=== PATIENT | female | born 1990 | race Caucasian/White ===

== ENCOUNTER 2016-11-14 17:12 | Emergency (ER) | payer SELFPAY ==
[~2016-11-14] VITALS: Ht 157.5 cm; Wt 52.2 kg
--- NOTE | 2016-11-14 18:05 | Emergency Room Report ---
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 Clinical Suspician of Infection? Mental Status: Sepsis Risk: Have you (or family members/close friends) recently traveled outside the [place]? If Yes, where/when: Have you had exposure to infectious disease within the past month? TB? Other? Specify: Source patient, RN notes reviewed Exam Limitations no limitations Comment pt comes to the ED with an abscess on the right forearm for the past 4 days and gives history of IV drug use for a long time. She also smokes 1 ppd and has had a heart murmur in the past. She is afebrile but has a 5 cm abscess on right forearh and indeed does have a heart murmur but does not appear to be tachycardic. I discussed this with Dr. Lin as I do not want to I and D this abscess and not have any followup for her. Dr. Lin recommends admittng to the service doctor, start IV vancomycin, get ECHO in the AM and he will take her to surgery tomorrow to I&D if her ECHO is clear. Cardiac Chest Pain Chest pain indicative of cardiac No ALLERGIES Coded Allergies: No Known Allergies (04/14/16) Home Medications Reported Medications No Known Home Medications History Medical History General CAD? No Angina: No MS: No Hypertension? No Hyperlipidemia? No CHF? No DVT? No PE? No COPD? No Asthma? No Anemia? No GERD? No Gastric ulcers? No GI Bleed? No Hernia? No Thyroid Problems? No Hypothyroidism? No CVA? No Seizures? No Diabetes? No Insulin Dependent: No Insulin Pump: No Home FSBS? No Renal Insuffiency? No End Stage Renal Disease? No UTI? No Stones? No BPH? No GB Disease: No Nephritic Syndrome? No Asplenia? No Hepatitis? No Sickle Cell Disease? No Arthritis? No Migraines? No Cataracts? No Glaucoma? No MRSA? No HIV? No TB? No Anxiety? No Depression? No Cancer? No More? Yes Additional hx: HX HEART MURMUR Immunization Hx DT/Tetanus 10/01/2011 Flu Refused Pneumonia Refuses Surgical Hx Previous Surgery?Y TONSILS AND ADENOIDS Social History Smoking Hx Packs/day < 1 Pack Alcohol Alcohol: Yes Review of Systems All Other Systems Reviewed and Negative Constitutional see HPI Cardiovascular see HPI Skin see HPI Physical Exam Vital Signs Vital Signs Date Time Temp Pulse Resp B/P Pulse O2 O2 Flow FiO2 Ox Delivery Rate 11/14 1720 98.7 98 18 118/58 100 General Appearance no apparent distress Respiratory Status No: respiratory distress. Lung Sounds bilateral: normal breath sounds. Cardiovascular normal exam, regular rate/rhythm, systolic murmur (at left 2nd ICs) Extremities swelling, 5 CM ABSCESS RIGHT FOREARM Neurologic alert, data entry II-XII nml as tested, normal exam, no motor/sensory deficits, oriented x 3 Medical Decision Making LABS/Meds/Orders Pt receiving controlled substance in ED? No Results/Orders Current Medication Orders Sig/Jyoti Start time Last Medication Dose Route Stop Time Status Admin Miscellaneous 1 EACH CONSULT PHARMACY 11/14 1800 AC Information * 11/15 0558 Sodium Chloride 10 ML PRN PRN 11/14 1800 AC IV 11/15 1757 Sodium Chloride 1,000 ML .Q1H1M 11/14 1800 AC IV 11/14 1900 Sodium Chloride 10 ML PRN PRN 11/14 1800 AC IV 11/15 1757 Sodium Chloride 999 ML .Q6H40M 11/14 1800 AC IV Sodium Chloride 10 ML PRN PRN 11/14 1800 AC IV 11/15 1757 Orders Procedure Date/time Status IV SALINE LOCK 11/14 175 Active URINALYSIS/COMPLETE 11/14 175 Active PARTIAL THROMBOPLASTIN TIME 11/14 175 Active DRUG ABUSE SCREEN (10) 11/14 1758 Active CULTURE, BLOOD 11/14 1745 Active CULTURE, BLOOD 11/14 174 Active PROTHROMBIN TIME 11/14 174 Active CBC WITH AUTO DIFF 11/14 174 Active CHEM 12 PROFILE 11/14 174 Active Departure Departure Time of Disposition 1826 Disposition Against Medical Advice Clinical Impression Primary Impression: Abscess of right forearm Secondary Impressions: IV drug user Condition STABLE Referrals Riley DAVIS,Evens Additional Instructions I spoke with the pt and told her that I had spoken with Dr. Lin and he wanted her to be admitted, get cultures, get ECHO in the morning and if ECHO clear, he would take her to surgery to open and drain the abscess. She initially agreed and the nurses started to try to get labs and IV started and pt, after 3 sticks, left the ER AMA and said she was not staying. I have told her if she has Bacterial Endocarditis this could be a life threatening problem. She reiterated she is not staying and left Discharge Counseling Counseled pt/family regarding diagnosis, test results, medications/RX, home care, follow up needs Prescriptions Current Visit Scripts No Known Home Medications ED Critical Care Critical Care No If Critical Care minutes are documented, the time involved in the performance of seperately reportable procedures was not counted toward critical care time documented. I directly delivered medical care to this critically ill and/or injured patient. Timely evaluation and treatment was necessary to address the significant organ system(s) dysfunction present in this patient. at 1836
[2016-11-14 18:52] VITALS: BP 118/58
--- OUTSIDE RECORDS SUMMARY | 2016-11-23 08:52 | External Medical Summary Rpt | CCD ---
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 Name Role Phone GARCÍA BRO, GARCÍA Unavailable Unavailable BRO GARCÍA BRO, GARCÍA Unavailable Unavailable [facility] Unavailable Unavailable [facility]ATOR[facility], [facility] Unavailable Unavailable SERVICE, [facility] Unavailable Unavailable SERVICE, [facility] DELUCA TATIANNA, DELUCA Unavailable Unavailable TATIANNA DELUCA TATIANNA, DELUCA Unavailable Unavailable [facility] Unavailable [facility]available [facility] DARRON SHANE, Unavailable Unavailable DARRON SHANE AICHA SANDRA, AICHA Unavailable Unavailable SANDRA CHILEL MAT, CHILEL Unavailable Unavailable MAT ONEILL TARYN, ONEILL TARYN Unavailable Unavailable [facility] [place]available [place] [place] [facility] [place] NANCY SANDRA, NANCY Unavailable Unavailable SANDRA NANCY SANDRA, NANCY Unavailable Unavailable SANDRA OSCAR MARIO MD, Unavailable Unavailable OSCAR MARIO MD HARPEL SHAY, HARPEL Unavailable Unavailable SHAY HARPEL SHAY, HARPEL Unavailable Unavailable SHAY [facility] Unavailable Unavailable INC, [facility] Unavailable Unavailable [facility], [facility] Unavailable Unavailable [facility] P, [facility] P JOSIAH JOE, Unavailable Unavailable JOSIAH JOE [facility] Bri Redmond MD, Unavailable Unavailable Bri Redmond MD [facility] Unavailable Unavailable SERVICES, [facility] ELENA YU, Unavailable Unavailable ELENA YU RICHARD, Unavailable Unavailable COLBY BELLA ANG, SCIFRES Unavailable Unavailable ANG SCIRERE ANG, SCIFRES Unavailable Unavailable MADHU IRWIN, Unavailable Unavailable MADHU [facility] Unavailable Unavailable DEPT [facility] DEPT [facility] Unavailable Unavailable DEPT [facility] DEPT [facility] WEHRMAN III CIRO, Unavailable Unavailable WEHRMAN III CIRO WEHRMAN III CIRO, Unavailable Unavailable WEHRMAN III Katalina DIAZ, ZAIN, Unavailable Unavailable Katalina C Purpose Continuity of Care Document - 04-19-2007 through 2016 Problems Code Diagnosis DOS Provider Status 9190 ABRASION/FR 07-31-2014 [facility] SITE W/O INF 8830 OPEN WOUND 02-07-2014 [facility] P MENTION COMPLICATIO N E8493 PLACE OF 02-07-2014 [facility] P PLACES&VANESSA ISES E9208 ACC CAUSED 02-07-2014 [facility]UM/OBJ S 650 NORMAL 11-04-2013 [facility] [place] 50104 11-03-2013 HARPEL SHAY DISTRESS AFFECT MANAGEMENT MOTH DELIVERED 10288 THIRD-DEGRE 11-03-2013 HARPEL SHAY E PERINEAL LACERATION WITH DELIVERY V270 OUTCOME OF 11-03-2013 HARPEL SHAY DELIVERY SINGLE LIVEBORN V221 SUPERVISION 10-31-2013 HARPEL SHAY OF OTHER NORMAL 50905 ASTHMA, 10-14-2013 NANCY SANDRA UNSPECIFIED , UNSPECIFIED STATUS 57345 OTHER 10-14-2013 NANCY SANDRA SPECIFED COMPLICATIO N ANTEPARTUM 85131 UNSPEC 09-25-2013 OSCAR MARIO MD /MALPRESENT ATION FETUS ANTPRTM V286 SCREENING 09-25-2013 [facility] [place] [address] THREATENED 08-29-2013 DELUCA TATIANNA PREMATURE LABOR ANTEPARTUM 04158 NAUSEA WITH 07-30-2013 GARCÍA BRO VOMITING V771 SCREENING 07-16-2013 [facility] FOR [facility] DIABETES INC MELLITUS 74103 OT CURRENT 06-23-2013 NANCY SANDRA MAT CONDS CLASSIFIABL E ELSW ANTPRTM 8472 LUMBAR 06-23-2013 NANCY SANDRA SPRAIN AND STRAIN E9288 OTHER 06-23-2013 NANCY SANDRA ACCIDENT 74136 OTHER 06-03-2013 OSCAR MARIO MD DISEASES DUE TO CHLAMYDIAE 67398 UNSPEC 05-31-2013 VERÓNICA III HEMORRHAGE CIRO EARLY ANTEPARTUM 70784 BREECH 05-31-2013 [facility] W/O IM[facility] ASS MENTION VERSION ANTPRTM 03228 ABDOMINAL 05-31-2013 WEHRMAN III PAIN, LEFT CIRO LOWER QUADRANT 90667 REGULAR 05-29-2013 SCIFRES ANG ASTIGMATISM 7804 DIZZINESS 04-18-2013 [facility] GIDDINESS SERVICES 7810 ABNORMAL 04-18-2013 [facility] INVOLUNTARY AMBULANCE MOVEMENTS SERVICE 7962 ELEVATED BP 04-18-2013 [facility] READING AMBULANCE WITHOUT DX SERVICE HYPERTENSIO N V222 04-18-2013 [facility] INCIDENTAL SERVICES V220 SUPERVISION 04-07-2013 OSCAR Villarreal OF NORMAL FABIANO DAVIS FIRST V7231 ROUTINE 04-07-2013 OSCAR Villarreal GYNECOLOGIC FABIANO DAVIS AL EXAMINATION V2689 OTHER 04-02-2013 [facility] SPECIFIED [facility] DEPT MANAGEMENT REX V7242 04-02-2013 [facility] EXAMINATION DISTRICT OR TEST [facility] DEPT POSITIVE REX RESULT 625.9 625.9 FEM 03-18-2013 [facility] NOS V72.42 V72.42 03-18-2013 [facility] OR TEST, POSITIVE RESULT 26843 UNSPECIFIED 05-03-2008 [facility] VIRAL [facility] INFECTION INC IN CCE & UNS SITE 2859 UNSPECIFIED 05-03-2008 [facility] ANEMIA [facility] 7862 COUGH 05-03-2008 [facility] 4659 ACUTE URIS 04-14-2008 A Meena MONZON [facility] UNSPECIFIED SITE 486 PNEUMONIA, 04-14-2008 A Meena [place] ORGANISM [facility] UNSPECIFIED 3671 MYOPIA 02-21-2008 SAIL[facility] VISION 4660 ACUTE 06-28-2007 A Meena [place] BRONCHITIS [facility] 5290 GLOSSITIS 06-17-2007 A Meena [place] MD [facility] 84583 MIGRAINE 05-22-2007 A Meena [place] W/O AURA [facility] W/O INTRACT W/O STAT MIGRNOSUS 462 ACUTE 04-29-2007 A Meena [place] PHARYNGITIS [facility] Allergies, Adverse Reactions, Alerts Type Allergy to substance Adverse Reaction to Substance Substance Reaction Severity NO KNOWN ALLERGIES Unknown Unknown Medications Na ND Rx Da Fi Fi Am Da Di Ph RX Ph St me C No te ll ll ou ys ag ar # ys at rm s nt no ma ic us Or Da si cy ia de te s n re d SO 00 02 0 No DI 40 -0 UM 97 4- Lo 98 20 ng CH 30 14 er LO 9 RI Ac DE ti ve 0. 9% SO RICHARD TI ON 66 11 12 00 12 6 EA 10 MO Ac 99 -1 -[address] 32 SE ti 20 8- 4- 00 SI 24 S ve 22 [address] 00 08 08 EP 4 PH HE AR N MA A CY OF CY NT HI AN A ME 00 11 12 00 21 6 EA 10 MO Ac TH 78 -1 -[address] 32 SE ti YL 15 8- 4- 00 SI 23 S ve NM [address] ED 20 08 08 EP NI 7 PH HE SO AR N LO MA A NE CY 4 OF MG CY NT DO HI SE AN PK A 58 05 05 00 24 12 EA 98 No Ac 17 -1 -[address] 01 t ti 70 6- 2- 00 SI 16 Av ve 92 20 20 0 DE ai 30 08 08 la 7 PH bl AR e MA CY OF CY NT HI AN A AZ 00 05 05 00 6. 6 EA 98 No Ac IT 09 -1 -[address] 01 t ti HR 37 6- 2- 0 SI 14 Av ve OM 14 20 20 DE ai YC 61 08 08 la IN 8 PH bl AR e 25 MA 0 CY MG OF TA CY BL NT ET HI AN A BU 00 04 04 00 30 3 EA 97 No Ac TA 59 -0 -[address] 53 t ti LB 13 9- 4- 00 SI 91 Av ve -A 36 20 20 DE ai CE 90 08 08 la TA 5 PH bl UT AR e N- MA CA CY FF OF 50 CY -3 NT 25 HI -4 AN 0 A Vital Signs 03-18-2013 23:29 Name Value Interpretat Reference Comment ion Range BP 61 mm[Hg] Diastolic BP Systolic 119 mm[Hg] Heart 99 /min Rate/Pulse O2% 100 % Respiratory 20 /min Rate 03-18-2013 21:52 Name Value Interpretat Reference Comment ion Range BP 78 mm[Hg] Diastolic BP Systolic 136 mm[Hg] Results Labs Lab Lab Date Result Refere Interp Status Commen Order Detail nces retati t Range on B-HCG SerPl EIA 3rd [facility] (03-18-2013 21:20) B-HCG 47359.1 complet SerPl 014 mIU/ML ed EIA 3rd 21:20 [facility] COMPREHENSIVE METABOLIC PANEL (03-18-2013 21:16) Glucose 02-04-2 129 74-106 complet 014 mg/dL ed Bld-mCn 21:16 c BUN 04-2 8 mg/dL 7-18 complet Bld-mCn 014 ed c 21:16 Creat 0204-2 0.8 0.6-1.0 complet SerPl-m 014 mg/dL ed Cnc 21:16 Creat 03-18- 91 50-200 complet Cl 014 ML/MIN ed predict 21:16 ed SerPl C-G-vRa te GFR/BSA 03-18- 90 59- complet .pred 014 ML/MIN ed SerPl 21:16 Schwart z-vRate Sodium 03-18- 135 136-145 complet SerPl-s 014 mmoL/L ed Cnc 21:16 Potassi 3.4 3.5-5.1 complet um 014 mmoL/L ed SerPl-s 21:16 Cnc Chlorid 98 98-107 complet e 014 mmoL/L ed SerPl-s 21:16 Cnc CO2 2 27 21.0-32 complet SerPl-s 014 mmoL/L .0 ed Cnc 21:16 Calcium -04-2 9.2 8.5-10. complet 014 mg/dL 1 ed SerPl-m 21:16 Cnc Prot 04-2 8.3 6.4-8.2 complet SerPl-m 014 gm/dL ed Cnc 21:16 Albumin -04-2 4.4 3.4-5.0 complet 014 gm/dL ed SerPl-m 21:16 Cnc Globuli 03-18-2 3.9 1.3-3.2 complet n 014 gm/dL ed Ser-mCn 21:16 c Albumin 04-2 1.1 UNK 1.1-1.8 complet /Glob 014 ed SerPl-m 21:16 Rto Bilirub 03-18-2 0.3 0.2-1.0 complet 014 mg/dL ed SerPl-m 21:16 Cnc AST 03-18-2 13 U/L 15-37 complet SerPl-c 014 ed Cnc 21:16 ALT 03-18-2 21 U/L 12-78 complet SerPl-c 014 ed Cnc 21:16 ALP 04-2 100 U/L 50-136 complet SerPl-c 014 ed Cnc 21:16 CBC with AUTO DIFF (03-18-2013 21:16) WBC # 02-04-2 13.3 4.8-10. complet Bld 014 K/MM3 8 ed Auto 21:16 RBC # 02-04-2 4.96 4.2-5.4 complet Bld 014 M/mm3 ed Auto 21:16 Hgb 02-04-2 15.6 12.2-16 complet Bld-mCn 014 g/dL .2 ed c 21:16 Hct Fr 02-04-2 45.5 % 37.0-47 complet Bld 014 .0 ed 21:16 MCV RBC 02-04-2 91.8 fl 82.2-97 complet 014 .8 ed 21:16 MCH RBC 02-04-2 31.5 pg 27-31.2 complet Qn 014 ed Auto 21:16 MEAN 02-04-2 34.3 31.8-35 complet CORPUSC 014 g/dl .4 ed ULAR 21:16 HGB CONC RDW RBC 02-04-2 14.7 % 11.5-17 complet Auto 014 .5 ed 21:16 Platele 02-04-2 266 142-424 complet t Bld 014 K/mm3 ed Ql 21:16 Manual MEAN 02-04-2 8.5 fl 7.4-10. complet PLATELE 014 4 ed T 21:16 VOLUME Granulo 02-04-2 69.8 % 37.0-80 complet cytes 014 .0 ed Fr Bld 21:16 Auto LYMPH % 02-04-2 25.0 % 10-50.0 complet 014 ed 21:16 Monocyt 02-04-2 3.0 % 1.7-9.3 complet es Fr 014 ed Bld 21:16 Auto Eosinop 02-04-2 1.9 % 0.1-12. complet hil Fr 014 0 ed Bld 21:16 Auto Basophi 02-04-2 0.4 % 0.1-2.0 complet ls Fr 014 ed Bld 21:16 Auto Granulo 02-04-2 9.3 1.8-7.8 complet cytes # 014 K/mm3 ed Bld 21:16 Auto Lymphoc 02-04-2 3.3 0.7-4.5 complet ytes Fr 014 K/mm3 ed Bld 21:16 Auto Monocyt 02-04-2 0.4 0.1-1.0 complet es # 014 K/mm3 ed Bld 21:16 Auto Eosinop 02-04-2 0.3 0.0-0.4 complet hil # 014 K/mm3 ed Bld 21:16 Auto Basophi -04-2 0.1 0-0.2 complet ls # 014 K/MM3 ed Bld 21:16 Auto B-HCG Ur Ql (03-18-2013 20:50) B-HCG 02-04-2 POSITIV NEG complet Ur Ql 014 E ed 20:50 URINALYSIS/COMPLETE (03-18-2013 20:50) URINE -04-2 YELLOW YELLOW complet COLOR 014 ed 20:50 URINE 02-04-2 CLEAR CLEAR complet APPEARA 014 ed NCE 20:50 URINE 02-04-2 NEGATIV NEG complet GLUCOSE 014 E ed - 20:50 DIPSTIC K URINE 02-04-2 NEGATIV NEG complet BILIRUB 014 E ed IN - 20:50 DIPSTIC K URINE 02-04-2 NEGATIV NEG complet KETONE 014 E mg/dL ed 20:50 URINE 02-04-2 1.010 1.005-1 complet SPECIFI 014 UNK .030 ed C 20:50 GRAVITY URINE 02-04-2 NEGATIV NEG complet BLOOD 014 E ed 20:50 URINE 02-04-2 6.0 UNK 5.0-8.5 complet PH 014 ed 20:50 URINE 02-04-2 NEGATIV NEG complet PROTEIN 014 E mg/dL ed - 20:50 DIPSTIC K URINE 02-04-2 0.2 NEG complet UROBILI 014 E.U./dL ed NOGEN - 20:50 DIPSTIC K URINE 02-04-2 NEGATIV NEG complet NITRATE 014 E ed - 20:50 DIPSTIC K URINE 02-04-2 TRACE NEG complet LEUK 014 ed ESTERAS 20:50 E URINE 02-04-2 3-5 0 complet RBC 014 rbc/hpf ed 20:50 URINE 02-04-2 5-10 O complet WBC 014 wbc/hpf ed 20:50 URINE 02-04-2 10-20 0-5 complet SQUAMOU 014 #/hpf ed S CELLS 20:50 URINE 02-04-2 2+ O complet BACTERI 014 ed A 20:50 Procedures Procedure DOS Code Location Performer Comment NEURAXIAL 00764 [facility] ONEILL TARYN LABOR 4 ANESTH ANALG/ANE OF THE S PLND BLUE VAGINAL DELIVERY VAGINAL 73363 REXKOBI HARPEL DELIVERY 4 SHAY SHAY ONLY W/POSTPAR NAVA CARE CUL 87163 OSCAR MARIO PRSMPTV 4 FABIANO DAY PTHGNC ORGANISM SCRN W/COLONY ESTIMJ PARTICLE 94572 [facility]EN[facility]ICT AGGLUTINA 4 [facility] TION INC INC SCREEN EACH ANTIBODY US PREG 41993 OSCAR MARIO UTERUS 4 FABIANO DAVIS SHAY AFTER 1ST TRIMEST GESTATION 27544 YOSI DELUCA NONSTRESS 4 TATIANNA TATIANNA TEST BLOOD 58164 [facility] COUNT 4 [facility] COMPLETE INC INC AUTO&AUTO DIFRNTL WBC GLUCOSE 94538 [facility] POST 4 [facility] GLUCOSE INC INC DOSE US PREG 34879 OSCAR REYESL UTERUS 4 FABIANO DAVIS SHAY AFTER 1ST TRIMEST GESTATION IADNA 82725 BIO BIO CHLAMYDIA 4 REFERNCE REFERNCE LABORATOR LABORATOR TRACHOMAT IES IES IS AMPLIFIED PROBE TQ CULTURE 84464 OSCAR MARIO CHLAMYDIA 4 FABIANO DAVIS SHAY ANY SOURCE US PREG 71919 [facility] UTERUS 4 MEDICAL SHANE REAL TIME IMAGING F/U ASS TRNSABDL PER FETUS OPHTH 35767 SCIFRES SCIFRES MEDICAL 4 ANG ANG XM&EVAL COMPRE NEW PT 1/> VST US PREG 99238 OSCAR REYESL UTERUS 4 FABIANO DAVIS SHAY REAL TIME W/IMAGE DCMTN TRANSVAG AMB A0427 [facility] SERVICE 4 AMBULANCE AMBULANCE ALS SERVICE SERVICE EMERGENCY TRANSPORT LEVEL 1 GROUND A0425 [facility] MILEAGE 4 AMBULANCE AMBULANCE PER SERVICE SERVICE STATUTE MILE IADNA 44957 BIO BIO TRICHOMON 4 REFERNCE REFERNCE LABORATOR LABORATOR VAGINALIS IES IES AMPLIFIED PROBE TECH IAADIADOO 06010 OSCAR MARIO 4 FABIANO DAVIS SHAY TRICHOMON VAGINALIS IADNA 05154 BIO BIO STEFANO 4 REFERNCE REFERNCE SPECIES LABORATOR LABORATOR AMPLIFIED IES IES PROBE TQ IADNA 52201 BIO BIO GARDNEREL 4 REFERNCE REFERNCE LA LABORATOR LABORATOR VAGINALIS IES IES AMPLIFIED PROBE TQ CYTP C/V 85654 BIO BIO AUTO THIN 4 REFERNCE REFERNCE LYR LABORATOR LABORATOR PREPJ SCR IES IES MNL RESCR PHYS CULTURE 50606 OSCAR Villarreal CHLAMYDIA 4 FABIANO MARIO MD ANY SOURCE IADNA 55585 BIO BIO CHLAMYDIA 4 REFERNCE REFERNCE LABORATOR LABORATOR TRACHOMAT IES IES IS AMPLIFIED PROBE TQ IADNA 81104 OSCAR MARIO HERPES 4 FABIANO DAVIS SHAY SIMPLX VIRUS DIRECT PROBE TQ IADNA 51778 BIO BIO HERPES 4 REFERNCE REFERNCE SOMPLX LABORATOR LABORATOR VIRUS IES IES AMPLIFIED PROBE TQ IADNA 07478 OSCAR MARIO NEISSERIA 4 FABIANO DAVIS SHAY GONORRHOE AE DIRECT PROBE TQ IADNA 20506 BIO BIO NEISSERIA 4 REFERNCE REFERNCE LABORATOR LABORATOR GONORRHOE IES IES AE AMPLIFIED PROBE TQ IADNA NOS 04380 BIO BIO 4 REFERNCE REFERNCE AMPLIFIED LABORATOR LABORATOR PROBE TQ IES IES EACH ORGANISM RADIOLOGI 14381 [facility] Meena YU EXAM 9 MEDICAL ELENA P CHEST 2 IMAGING VIEWS ASSOCIATE FRONTAL&L S ATERAL IAADI 88466 [facility] INFLUENZA 9 [facility] B VIRUS INC INC IAADI 19161 [facility] INFFLUENZ 9 [facility] A A VIRUS INC INC BLOOD 05770 [facility] BENEDICT COUNT 9 [facility] COMPLETE INC INC AUTO&AUTO DIFRNTL WBC IAADIADOO 26284 Katalina RUVALCABA MD INFLUENZA [facility] OPH 73915 NARINDER BARAJAS 9 VISION MADHU M XM&EVAL COMPRHNSV ESTAB PT 1/> FRAMES V2020 SAILAJA SCIFRROLANDA, PURCHASES 9 VISION MADHU M SPHERE V2100 SAILAJA SCIFRES, SINGLE 9 VISION MADHU M VISION PLANO +/- 4.00 PER LENS FITTING 51294 SAILAJA SCIFRES, SPECTACLE 9 VISION MADHU M S XCPT APHAKIA MONOFOCAL SPHERE V2100 TATYANA JOE, SINGLE 8 JOSIAH A JOSIAH A VISION PLANO +/- 4.00 PER LENS RPR&REFIT 21149 TATYANA JOE G 8 JOSIAH A JOSIAH A SPECTACLE S EXCEPT APHAKIA FRAMES V2020 TATYANA JOE, PURCHASES 8 JOSIAH A JOSIAH A FRAMES V2020 TTAYANA JOE, PURCHASES 8 JOSIAH A JOSIAH A RPR&REFIT 28619 TATYANA JOE G 8 JOSIAH A JOSIAH A SPECTACLE S EXCEPT APHAKIA IADNA 56226 Katalina BELLA, STREPTOCO 8 ZAIN DAVIS COLBY [employer] A QUANTIFIC ATION FRAMES V2020 TATYANA JOE, PURCHASES 8 JOSIAH A JOSIAH A SPHERE V2100 TATYANA JOE SINGLE 8 JOSIAH A JOSIAH A VISION PLANO +/- 4.00 PER LENS FITTING 22453 TATYANA JOE, SPECTACLE 8 JOSIAH A JOSIAH A S XCPT APHAKIA MONOFOCAL OPHTH 75387 TATYANA JOE, MEDICAL 8 JOSIAH A JOSIAH A XM&EVAL COMPRHNSV ESTAB PT Encounters Encounter Start End Date Code Location Performer Type Date OFFICE [address] [facility] 5 5 [facility] T VISIT [facility] 15 MINUTES [facility] - 4 4 [facility] EMER[facility]ENCY 30878 [facility] CHILEL 4 4 [facility] T VISIT P LIMITED/M INOR PROB OFFICE 51949 HARPEL HARPEL OUTPATIEN 4 4 [facility]AY SHAY T VISIT 15 MINUTES OFFICE 53237 HARPEL HARPEL OUTPATIEN 4 4 SHAY SHAY T VISIT 15 MINUTES EMERGENCY 98561 NANCY REDMOND 4 4 SANDRA SANDRA DEPARTMEN T VISIT MODERATE SEVERITY OFFICE 28821 OSCAR R HARPEL OUTPATIEN 4 4 FABIANO DAVIS SHAY T VISIT 15 MINUTES HOSPITAL [facility] - 4 4 [facility] OUTPATI[facility] INC T OFFICE 39421 OSCAR R HARPEL OUTPATIEN 4 4 FABIANO DAVIS SHAY T VISIT 15 MINUTES OFFICE 69732 OSCAR R HARPEL OUTPATIEN 4 4 FABIANO DAVIS SHAY T VISIT 15 MINUTES OFFICE 63376 OSCAR R HARPEL OUTPATIEN 4 4 FABIANO DAVIS SHAY T VISIT 15 MINUTES EMERGENCY 22092 [facility] 4 4 [facility] DEPARTMEN T VISIT MODERATE SEVERITY OFFICE 66071 OSCAR Villarreal HARPEL OUTPATIEN 4 4 FABIANO DAVIS SHAY T VISIT 15 MINUTES HOSPITAL [facility] - 4 4 [facility] OUTPATIEN INC T OFFICE 05611 OSCAR Villarreal [facility] OUTPATIEN 4 4 FABIANO DAVIS SHAY T VISIT 15 MINUTES OFFICE 02489 OSCAR Villarreal HARPEL OUTPATIEN 4 4 FABIANO DAVIS SHAY T VISIT 15 MINUTES EMERGENCY 48740 NANCY REDMOND 4 4 SANDRA SANDRA DEPARTMEN T VISIT MODERATE SEVERITY OFFICE 27958 OSCAR Villarreal HARPEL OUTPATIEN 4 4 FABIANO DAY T VISIT 15 MINUTES EMERGENCY 89635 VERÓNICA SANCHES DEPT 4 4 III CIRO III CIRO VISIT HIGH SEVERITY& THREAT FUNCJ OFFICE 84236 OSCAR MARIO OUTPATIEN 4 4 FABIANO DAY T VISIT 15 MINUTES OFFICE 12018 OSCAR MARIO OUTPATIEN 4 4 FABIANO DAY T VISIT 15 MINUTES EMERGENCY 55547 JODY REDMOND 4 4 EMERGENCY SANDRA DEPARTMEN SERVICES T VISIT HIGH/URGE NT SEVERITY INITIAL 09802 OSCAR MARIO PREVENTIV 4 4 FABIANO DAY E MEDICINE NEW PT AGE 18-39YRS OFFICE 26448 [facility] NEW 20 HLTH DEPT HLTH DEPT MINUTES [facility] Emergency PRIYA Marichuy Redmond MD (ER) 4 21:29 4 23:31 [facility] EMERGENCY 32808 [facility]UY 9 9 [facility] T VISIT MODERATE SEVERITY HOSPITAL [facility] - 9 9 [facility] T OFFICE 13119 Katalina RUVALCABA OUTPATIEN 9 9 ZAIN Robledo T VISIT PSC 15 MINUTES OFFICE 07148 Katalina RUVALCABA OUTPATIEN 9 9 ZAIN Robledo T VISIT PSC 15 MINUTES OFFICE 84534 Katalina RUVALCABA OUTPATISHAHIDA 8 8 ZAIN Robledo T VISIT PSC 15 MINUTES OFFICE 38751 Katalina RUVALCABA OUTPATIEN 8 8 ZAIN Robledo T VISIT PSC 15 MINUTES OFFICE 86506 Katalina RUVALCABA OUTPATISHAHIDA 8 8 ZAIN Robledo T VISIT PSC 15 MINUTES OFFICE 44487 Katalina RVUALCABA OUTPATISHAHIDA 8 8 ZAIN Robledo T VISIT PSC 15 MINUTES OFFICE 48089 Katalina RUVALCABA OUTPATIEN 8 8 ZAIN Robledo T VISIT PSC 15 MINUTES OFFICE 68543 SU ZAPATA 8 8 ZAIN Pantoja VISIT PSC 15 MINUTES OFFICE 59007 Katalina RUVALCABA 8 8 ZAIN Pantoja VISIT PSC 15 MINUTES
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
--- OUTSIDE RECORDS SUMMARY | 2016-11-23 08:53 | External Medical Summary Rpt | CCD ---
Author Author , PORSCHE MORRELL Address Unknown Phone [email or web address] Immunization Name Date Rout CVX Reac Dose Comm Prov Is Faci e tion ent ider Refu lity Give sed n Hep 10-2 8 999 Hist H149 No H149 B, 8-20 oric ped/ 02 al adol Info rmat ion - Sour ce Unsp ecif ied Hep 05-2 8 999 Hist H149 No H149 B, 2-20 oric ped/ 02 al adol Info rmat ion - Sour ce Unsp ecif ied MMR 04-1 3 999 Hist H149 No H149 9-20 oric 02 al Info rmat ion - Sour ce Unsp ecif ied Hep 04-1 8 999 Hist H149 No H149 B, 9-20 oric ped/ 02 al adol Info rmat ion - Sour ce Unsp ecif ied
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
--- OUTSIDE RECORDS SUMMARY | 2016-11-23 08:53 | External Medical Summary Rpt | CCD ---
Author Author , PORSCHE MORRELL Address Unknown Phone [email or web address] Immunization Name Date Rout CVX Reac Dose [...]
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
--- OUTSIDE RECORDS SUMMARY | 2016-11-23 08:53 | External Medical Summary Rpt ---
Author Author PORSCHE Mcdowell, PORSCHE Mcdowell Organization [employer] Address Unknown Phone Unavailable
== END 2016-11-14 18:30 | disposition left against medical advice (07) ==
LOC: ER 17:12
DX: L03.113 Cellulitis of right upper limb (principal); F17.210 Nicotine dependence, cigarettes, uncomplicated; F19.11 Other psychoactive substance abuse, in remission; R01.1 Cardiac murmur, unspecified

== ENCOUNTER 2017-01-19 07:08 | Emergency (ER) | payer MEDICAID ==
[~2017-01-19] VITALS: Ht 157.5 cm; Wt 57.6 kg
[~2017-01-19 07:08] MED LIST: ACETAMINOPHEN500 M3 PO; AMOXIL500 MG PO; AVPAK AZITHROM250 MG PO; BACTRIM DS 8001 TA1 PO; CIPRO 500MG TA500 MG PO; CIPRO HC 0.2%-110 ML OT; ERYTHROMYCIN1 GM/UDP OP; FLAGYL500 M1 PO; IBU-8800 MG PO; KEFLEX 500MG.500 MG PO; MEDROL 4MG. DOSE4 MG PO; MOTRIN 600MG.600 MG PO; NAPROXEN SODIU500 MG PO; NOMEDS; PERCOCET 5/3251 EACH PO; PHENERGAN 25MG.25 M1 PO; PHENERGAN25 M3 PO; PREDNISONE 10MG10 MG PO; PRENATAL PLUS1 TA1 PO; SEPTRA DS 800 M1 TAB PO; TESSALON PERLE100 MG PO; ZITHROMAX Z-PA250 M1 PO; ZOFRAN ODT4 MG PO
--- OUTSIDE RECORDS SUMMARY | 2017-01-19 07:37 | External Medical Summary Rpt | CCD ---
Author Author , PORSCHE Organization PORSCHE Address Unknown Phone [email or web address] Care Team Providers Care Boarding Machine Operator Name Role Phone Bri Redmond MD, Unavailable Unavailable Bri Redmond MD Purpose Continuity of Care Document - 03-18-2013 through 2016 Problems Code Diagnosis DOS Provider Status 625.9 625.9 FEM 03-18-2013 [facility] NOS V72.42 V72.42 03-18-2013 [facility] OR TEST, POSITIVE RESULT F19.10 OTHER PSYCHOACTIV E SUBSTANCE ABUSE, UNCOMPLICAT ED F19.90 OTHER PSYCHOACTIV E SUBSTANCE USE, UNSPECIFIED , UNCOMPLICAT ED H10.9 UNSPECIFIED CONJUNCTIVI TIS H60.90 UNSPECIFIED OTITIS EXTERNA, UNSPECIFIED EAR H66.90 OTITIS MEDIA, UNSPECIFIED , UNSPECIFIED EAR I80.9 PHLEBITIS AND THROMBOPHLE BITIS OF UNSPECIFIED SITE ACY2786 J40 BRONCHITIS, NOT SPECIFIED ACUTE OR CHRONIC J45.909 UNSPECIFIED ASTHMA, UNCOMPLICAT ED K08.89 OTHER SPECIFIED DISORDERS OF TEETH AND SUPPORTING STRUCTURES K52.9 NONINFECTIV E GASTROENTER ITIS AND COLITIS, UNSPECIFIED L02.413 CUTANEOUS ABSCESS OF RIGHT UPPER LIMB L02.91 CUTANEOUS ABSCESS, UNSPECIFIED L03.119 CELLULITIS OF UNSPECIFIED PART OF LIMB M76.60 ACHILLES TENDINITIS, UNSPECIFIED LEG N12 TUBULO-INTE RSTITIAL NEPHRITIS, NOT SPCF ACUTE OR CHRONIC N93.9 ABNORMAL UTERINE AND VAGINAL BLEEDING, UNSPECIFIED R10.9 UNSPECIFIED ABDOMINAL PAIN R11.2 NAUSEA WITH VOMITING, UNSPECIFIED R42 DIZZINESS AND GIDDINESS S02.5XXA FRACTURE OF TOOTH (TRAUMATIC) , INIT FOR CLOS FX S39.012A STRAIN OF MUSCLE, FASCIA AND TENDON OF LOWER BACK, INIT S83.90XA SPRAIN OF UNSPECIFIED SITE OF UNSPECIFIED KNEE, INIT ENCNTR T14.8 OTHER INJURY OF UNSPECIFIED BODY REGION Z00.8 ENCOUNTER FOR OTHER GENERAL EXAMINATION Z33.1 STATE, INCIDENTAL Z34.90 ENCNTR FOR SUPRVSN OF NORMAL , UNSP, UNSP TRIMESTER Allergies, Adverse Reactions, Alerts Type Allergy to [...] Ac DE ti ve 0. 9% SO RICHADR TI ON Vital Signs 03-18-2013 23:29 Name Value Interpretat [...] Order Detail nces retati t Range on CBC w auto diff (11-18-2016 09:40) Automat = 0.1 0-0.2 complet ed 017 K/MM3 ed blood 09:40 basophi l count (count/ vo Baso % = 0.6 % 0.1-2.0 complet 017 ed 09:40 Automat = 0.2 0.0-0.4 complet ed 017 K/mm3 ed blood 09:40 eosinop hil count Automat = 1.9 % 0.1-12. complet ed 017 0 ed blood 09:40 eosinop hils/10 0 leukocy t Blood = 6.1 1.8-7.8 complet granulo 017 K/mm3 ed cytes 09:40 automat ed count (numb Granulo = 54.4 37.0-80 complet cyte 017 % .0 ed percent 09:40 age Blood = 43.5 37.0-47 complet hematoc 017 % .0 ed rit 09:40 (volume fractio n) Blood = 14.3 12.2-16 complet hemoglo 017 g/dL .2 ed bin 09:40 measure ment (mass/v olum Absolut = 3.9 0.7-4.5 complet e 017 K/mm3 ed lymphoc 09:40 yte count Lymphoc = 34.6 10-50.0 complet yte 017 % ed count, 09:40 blood, automat ed Mean = 29.2 27-31.2 complet corpusc 017 pg ed ular 09:40 hemoglo bin (MCH) determ Automat = 32.9 31.8-35 complet ed 017 g/dl .4 ed erythro 09:40 cyte mean corpusc ular h Automat = 88.7 82.2-97 complet ed 017 fl .8 ed erythro 09:40 cyte mean corpusc ular v Absolut = 1.0 0.1-1.0 complet e 017 K/mm3 ed monocyt 09:40 e count Traill % = 8.6 % 1.7-9.3 complet 017 ed 09:40 Automat = 7.8 7.4-10. complet ed 017 fl 4 ed blood 09:40 platele t mean volume marivel Blood = 304 142-424 complet platele 017 K/mm3 ed t count 09:40 Red = 4.91 4.2-5.4 complet blood 017 M/mm3 ed cell 09:40 count Automat = 13.0 11.5-17 complet ed 017 % .5 ed erythro 09:40 cyte distrib ution width Blood = 11.3 4.8-10. complet leukocy 017 K/MM3 8 ed dana 09:40 count (number /volume ) Comprehensive metabolic panel (11-18-2016 09:40) Serum = 0.9 1.1-1.8 complet or 017 ed plasma 09:40 albumin /globul in mass ra Serum = 3.5 3.4-5.0 complet or 017 gm/dL ed plasma 09:40 albumin measure ment (mas Serum = 87 46-116 complet or 017 U/L ed plasma 09:40 alkalin e phospha tase marivel Serum = 0.4 0.2-1.0 complet or 017 mg/dL ed plasma 09:40 total bilirub in measure m Serum = 11 7-18 complet or 017 mg/dL ed plasma 09:40 urea nitroge n measure men Serum = 9.2 8.5-10. complet or 017 mg/dL 1 ed plasma 09:40 calcium measure ment (mas Serum = 102 98-107 complet or 017 mmoL/L ed plasma 09:40 chlorid e measure ment (mo Carbon = 26 21.0-32 complet dioxide 017 mmoL/L .0 ed 09:40 measure ment Serum = 0.7 0.55-1. complet or 017 mg/dL 02 ed plasma 09:40 creatin ine measure ment ( Estimat = 96 50-200 complet ion of 017 ML/MIN ed creatin 09:40 ine renal clearan ce Estimat = 101 59- complet ed 017 ML/MIN ed glomeru 09:40 lar filtrat ion rate (GF Comment: REFERENCE RANGE: >60 ML/MIN/1.73 SQUARE METERS Comment: If this patient is -Mongolian, then multiply the Comment: result by 1.210. Serum = 4.0 1.3-3.2 complet globuli 017 gm/dL ed n 09:40 measure ment (mass/v olume) Serum = 87 74-106 complet or 017 mg/dL ed plasma 09:40 glucose measure ment (mas Serum = 3.3 3.5-5.1 complet potassi 017 mmoL/L ed um 09:40 measure ment Serum = 137 136-145 complet sodium 017 mmoL/L ed measure 09:40 ment Serum = 52 15-37 complet or 017 U/L ed plasma 09:40 asparta te aminotr ansfera ALT = 76 12-78 complet (SGPT) 017 U/L ed ser/destin 09:40 s Protein = 7.5 6.4-8.2 complet total 017 gm/dL ed ser/destin 09:40 s Blood lactic acid measurement (moles/vol (11-18-2016 09:40) Blood = 0.9 0.4-2.0 complet lactic 017 mmol/L ed acid 09:40 measure ment (moles/ vol Serum test (11-18-2016 09:40) Serum = NEG complet pregnan 017 NEGATIV ed cy test 09:40 E Urine 9-analyte drugs of abuse screening (11-18-2016) Comment: Positive urine drug screen samples are stored for 7 days. Comment: Contact the Lab if confirmation of positives is needed. Urine NEGATIV <1000 complet ampheta 017 E ed mine NEGATIV screeni E L ng test ng/mL Urine = <200 complet barbitu 017 NEGATIV ed rates E ng/mL measure ment by screen Serum = 200 complet or 017 NEGATIV ng/mL ed plasma E ng/mL benzodi azepine s measure m Cocaine = <300 complet 017 POSITIV ed measure E ng/g ment (mass/v olume) Comment: This is an UNCONFIRMED result. This result is for medical Comment: purposes and/or treatment only. Methado = <300 complet ne 017 NEGATIV ed measure E ng/mL ment (mass/v olume) Opiates = <300 complet 017 POSITIV ed measure E ng/mL ment (mass/v olume) Comment: This is an UNCONFIRMED result. This result is for medical Comment: purposes and/or treatment only. Phencyc = <25 complet lidine 017 NEGATIV ed measure E ng/mL ment (mass/v olume) 11-hydr POSITIV <50 complet oxy 017 E ed delta-9 POSITIV E L tetrahy ng/mL drocann abinol Comment: This is an UNCONFIRMED result. This result is for medical Comment: purposes and/or treatment only. Drugs identified in Urine by Screen method (11-18-2016) Ampheta NEGATIV <1000 complet mine 017 E ed [Presen ce] in Urine by Screen method 11-Hydr POSITIV <50 Abnorma complet oxy 017 E l ed delta-9 tetrahy drocann abinol [Presen ce] in Unspeci fied specime n B-HCG SerPl EIA 3rd [facility] (03-18-2013 21:20) B-HCG 78470.1 complet SerPl 014 mIU/ML ed EIA 3rd 21:20 [facility] COMPREHENSIVE METABOLIC PANEL (03-18-2013 21:16) Glucose 129 74-106 complet 014 mg/dL ed Bld-mCn 21:16 c BUN 8 mg/dL 7-18 complet Bld-mCn 014 ed c 21:16 Creat 0.8 0.6-1.0 complet SerPl-m 014 mg/dL ed Cnc 21:16 Creat 91 50-200 complet Cl 014 ML/MIN ed predict 21:16 ed SerPl C-G-vRa te GFR/BSA 90 59- complet .pred 014 ML/MIN ed SerPl 21:16 Schwart z-vRate Sodium 135 136-145 complet SerPl-s 014 mmoL/L ed Cnc 21:16 Potassi 3.4 3.5-5.1 complet um 014 mmoL/L ed SerPl-s 21:16 Cnc Chlorid 98 98-107 complet e 014 mmoL/L ed SerPl-s 21:16 Cnc CO2 27 21.0-32 complet SerPl-s 014 mmoL/L .0 ed Cnc 21:16 Calcium 04-2 9.2 8.5-10. complet 014 mg/dL 1 ed SerPl-m 21:16 Cnc Prot 03-18-2 8.3 6.4-8.2 complet SerPl-m 014 gm/dL ed Cnc 21:16 Albumin 04-2 4.4 3.4-5.0 complet 014 gm/dL ed SerPl-m 21:16 Cnc Globuli 3.9 1.3-3.2 complet n 014 gm/dL ed Ser-mCn 21:16 c Albumin 02-04-2 1.1 UNK 1.1-1.8 complet /Glob 014 ed SerPl-m 21:16 Rto Bilirub 02-04-2 0.3 0.2-1.0 complet 014 mg/dL ed SerPl-m 21:16 Cnc AST 02-04-2 13 U/L 15-37 complet SerPl-c 014 ed Cnc 21:16 ALT 02-04-2 21 U/L 12-78 complet SerPl-c 014 ed Cnc 21:16 ALP 02-04-2 100 U/L 50-136 complet SerPl-c 014 ed [...] 014 K/mm3 ed Bld 21:16 Auto Eosinop -04-2 0.3 0.0-0.4 complet hil # 014 K/mm3 ed Bld 21:16 Auto Basophi -04-2 0.1 0-0.2 complet ls # 014 K/MM3 ed Bld 21:16 Auto B-HCG Ur Ql (03-18-2013 20:50) B-HCG -04-2 POSITIV NEG complet Ur Ql 014 E ed 20:50 URINALYSIS/COMPLETE (03-18-2013 20:50) URINE 02-04-2 YELLOW YELLOW complet COLOR 014 ed 20:50 URINE -04-2 CLEAR CLEAR complet APPEARA 014 ed NCE 20:50 URINE -04-2 NEGATIV NEG complet GLUCOSE 014 E ed [...] E ed - 20:50 DIPSTIC K URINE TRACE NEG complet LEUK 014 ed ESTERAS 20:50 E URINE 3-5 0 complet RBC 014 rbc/hpf ed 20:50 URINE 5-10 O complet WBC 014 wbc/hpf ed 20:50 URINE 10-20 0-5 complet SQUAMOU 014 #/hpf ed S CELLS 20:50 URINE 2+ O complet BACTERI 014 ed A 20:50 Encounters Encounter Start End Date Code Location Performer Type Date Emergency PRIYA Redmond MD (ER) 4 21:29 4 23:[address] [facility]
--- OUTSIDE RECORDS SUMMARY | 2017-01-19 07:37 | External Medical Summary Rpt | CCD ---
Author Author , PORSCHE Organization P[facility]SC[facility] Address Unknown Phone [email or web address] Care Team Providers Care Retail Sales Professional Name Role Phone Bri Redmond MD, Unavailable Unavailable Bri Redmond MD Purpose Continuity of Care Document - 03-18-2013 through 2016 Problems Code Diagnosis DOS Provider Status 625.9 625.9 FEM 03-18-2013 [facility] NOS V72.42 V72.42 03-18-2013 [facility] OR TEST, POSITIVE RESULT F19.10 OTHER PSYCHOACTIV E SUBSTANCE ABUSE, UNCOMPLICAT ED F19.90 OTHER PSYCHOACTIV E SUBSTANCE USE, UNSPECIFIED , UNCOMPLICAT ED H10.9 UNSPECIFIED CONJUNCTIVI TIS H60.90 UNSPECIFIED OTITIS EXTERNA, UNSPECIFIED EAR H66.90 OTITIS MEDIA, UNSPECIFIED , UNSPECIFIED EAR I80.9 PHLEBITIS AND THROMBOPHLE BITIS OF UNSPECIFIED SITE AFS2185 J40 BRONCHITIS, NOT SPECIFIED ACUTE OR CHRONIC [...] ve 0. 9% SO RICHARD TI ON Vital Signs 03-18-2013 23:29 Name [...] 017 K/mm3 ed monocyt 09:40 e count [place] % = 8.6 % 1.7-9.3 complet 017 [...] SQUARE METERS Comment: If this patient is -[place]amb[place], then multiply the Comment: result by 1.210. [...] fied specime n B-HCG SerPl EIA 3rd [facility] (03-18-2013 21:20) B-HCG 56129.1 complet SerPl 014 mIU/ML ed EIA 3rd 21:20 [facility] COMPREHENSIVE METABOLIC PANEL (03-18-2013 21:16) Glucose [...] Redmond MD (ER) 4 21:29 4 23:31 [facility]
--- OUTSIDE RECORDS SUMMARY | 2017-01-19 07:38 | External Medical Summary Rpt | CCD ---
Author Author , PORSCHE MORRELL Address Unknown Phone [email or web address] Immunization Name Date Rout CVX Reac Dose [...]
--- OUTSIDE RECORDS SUMMARY | 2017-01-19 07:38 | External Medical Summary Rpt ---
Author Author SANCHORUDY Mcdowell, [employer] Organization [employer] Address Unknown Phone Unavailable Results Choriogonadotropin [Units/volume] in Serum or Plasma Observa Value Referen Units Interpr Notes Date tion ce etation Range Choriogon NEG No No No Nov 7 adotropin informati informati informati 2017 9:40 on in on in on in AM [Units/vo source source source lume] in data data data Serum or Plasma Lactate [Moles/volume] in Blood Observa Value Referen Units Interpr Notes Date tion ce etation Range Lactate 0.4 - 2.0 mmol/L Normal No Nov 7 [Moles/vo informati 2017 9:40 lume] in on in AM Blood source data Comprehensive metabolic 2000 panel in Serum or Plasma Observa Value Referen Units Interpr Notes Date tion ce etation Range Albumin/G 1.1 - 1.8 No Low No Oct 7 lobulin informati informati 2017 9:40 [Mass on in on in AM ratio] in source source Serum or data data Plasma Albumin 3.4 - 5.0 gm/dL Normal No Nov 7 [Mass/vol informati 2017 9:40 ume] in on in AM Serum or source Plasma data Alkaline 46 - 116 U/L Normal No Nov 7 phosphata informati 2017 9:40 se on in AM [Enzymati source c data activity/ volume] in Serum or Plasma Bilirubin 0.2 - 1.0 mg/dL Normal No Nov 7 .total informati 2017 9:40 [Mass/vol on in AM ume] in source Serum or data Plasma Urea 7 - 18 mg/dL Normal No Nov 7 nitrogen informati 2017 9:40 [Mass/vol on in AM ume] in source Serum or data Plasma Calcium 8.5 - mg/dL Normal No Nov 7 [Mass/vol 10.1 informati 2017 9:40 ume] in on in AM Serum or source Plasma data Chloride 98 - 107 mmoL/L Normal No Nov 7 [Moles/vo informati 2017 9:40 lume] in on in AM Serum or source Plasma data Carbon 21.0 - mmoL/L Normal No Nov 7 dioxide, 32.0 informati 2017 9:40 total on in AM [Moles/vo source lume] in data Serum or Plasma Creatinin 0.55 - mg/dL Normal No Nov 7 e 1.02 informati 2017 9:40 [Mass/vol on in AM ume] in source Serum or data Plasma Creatinin 50 - 200 ML/MIN Normal No Nov 18 e renal informati 2016 9:40 clearance on in AM source predicted data by Cockcroft -Gault formula Estimated 59- ML/MIN No REFERENCE Nov 18 informati RANGE: 2017 9:40 glomerula on in >60 AM r source ML/MIN/1. filtratio data 73 SQUARE n rate METERSIf (GF this patient is -A merican, then multiply theresult by 1.210. Globulin 1.3 - 3.2 gm/dL High No Nov 18 [Mass/vol informati 2016 9:40 ume] in on in AM Serum source data Glucose 74 - 106 mg/dL Normal No Nov 18 [Mass/vol informati 2016 9:40 ume] in on in AM Serum or source Plasma data Potassium 3.5 - 5.1 mmoL/L Low No Nov 18 informati 2016 9:40 [Moles/vo on in AM lume] in source Serum or data Plasma Sodium 136 - 145 mmoL/L Normal No Nov 18 [Moles/vo informati 2017 9:40 lume] in on in AM Serum or source Plasma data Aspartate 15 - 37 U/L High No Nov 18 informati 2016 9:40 aminotran on in AM sferase source [Enzymati data c activity/ volume] in Serum or Plasma Alanine 12 - 78 U/L Normal No Nov 18 aminotran informati 2016 9:40 sferase on in AM [Enzymati source c data activity/ volume] in Serum or Plasma Protein 6.4 - 8.2 gm/dL Normal No Nov 18 [Mass/vol informati 2016 9:40 ume] in on in AM Serum or source Plasma data CBC W Auto Differential panel in Blood Observa Value Referen Units Interpr Notes Date tion ce etation Range Basophils 0 - 0.2 K/MM3 Normal No Nov 18 informati 2016 9:40 [#/volume on in AM ] in source Blood by data Automated count Basophils 0.1 - 2.0 % Normal No Nov 18 informati 2016 9:40 leukocyte on in AM s in source Blood by data Automated count Eosinophi 0.0 - 0.4 K/mm3 Normal No Nov 18 ls informati 2016 9:40 [#/volume on in AM ] in source Blood by data Automated count Eosinophi 0.1 - % Normal No Nov 18 ls/100 12.0 informati 2016 9:40 leukocyte on in AM s in source Blood by data Automated count Granulocy 1.8 - 7.8 K/mm3 Normal No Nov 18 dana informati 2016 9:40 [#/volume on in AM ] in source Blood by data Automated count Granulocy 37.0 - % Normal No Nov 18 dana/100 80.0 informati 2016 9:40 leukocyte on in AM s in source Blood by data Automated count Hematocri 37.0 - % Normal No Nov 18 t [Volume 47.0 informati 2016 9:40 on in AM Fraction] source of Blood data Hemoglobi 12.2 - g/dL Normal No Nov 18 n 16.2 informati 2016 9:40 [Mass/vol on in AM ume] in source Blood data Lymphocyt 0.7 - 4.5 K/mm3 Normal No Nov 18 es informati 2017 9:40 [#/volume on in AM ] in source Unspecifi data ed specimen by Automated count Lymphocyt 10 - 50.0 % Normal No Nov 18 es informati 2016 9:40 [#/volume on in AM ] in source Unspecifi data ed specimen by Automated count Erythrocy 27 - 31.2 pg Normal No Nov 18 te mean informati 2016 9:40 corpuscul on in AM ar source hemoglobi data n [Entitic mass] Erythrocy 31.8 - g/dl Normal No Nov 18 te mean 35.4 informati 2016 9:40 corpuscul on in AM ar source hemoglobi data n concentra tion [Mass/vol ume] by Automated count Erythrocy 82.2 - fl Normal No Nov 18 te mean 97.8 informati 2016 9:40 corpuscul on in AM ar volume source [Entitic data volume] by Automated count Monocytes 0.1 - 1.0 K/mm3 Normal No Nov 18 informati 2016 9:40 [#/volume on in AM ] in source Blood by data Automated count Monocytes 1.7 - 9.3 % Normal No Nov 18 /100 informati 2016 9:40 leukocyte on in AM s in source Blood by data Automated count Platelet 7.4 - fl Normal No Nov 18 mean 10.4 2016 9:40 volume on in AM [Entitic source volume] data in Blood by Automated count Platelets 142 - 424 K/mm3 Normal No Nov 182016 9:40 [#/volume on in AM ] in source Blood data Erythrocy 4.2 - 5.4 M/mm3 Normal No Nov 18 dana informati 2016 9:40 [#/volume on in AM ] in source Amniotic data fluid Erythrocy 11.5 - % Normal No Nov 18 te 17.5 informati 2016 9:40 distribut on in AM ion width source [Entitic data volume] by Automated count Leukocyte 4.8 - K/MM3 High No Nov 18 s 10.8 2016 9:40 [#/volume on in AM ] in source Blood data Drugs identified in Urine by Screen method Observa Value Referen Units Interpr Notes Date tion ce etation Range Positive urine drug screen samples are stored for 7 days. Contact the Lab if confirmation of positives is needed. Ampheta NEGATIV <1000 ng/mL No No Nov 18 mine E informa informa 2016 [Presen tion in tion in ce] in source source Urine data data by Screen method Barbitura <200 ng/mL No No Nov 18 dana informati informati 2016 [Mass/vol on in on in ume] in source source Urine by data data Screen method Benzodiaz 200 ng/mL ng/mL No No Nov 18 epines ati informati 2016 [Mass/vol on in on in ume] in source source Serum or data data Plasma by Screen method Cocaine <300 ng/g High This is Nov 18 [Mass/vol an 2016 ume] in UNCONFIRM Unspecifi ED ed result. specimen This result is for medicalpu rposes and/or treatment only. Methadone <300 ng/mL No No Nov 18 informati informati 2016 [Mass/vol on in on in ume] in source source Unspecifi data data ed specimen Opiates <300 ng/mL High This is Nov 18 [Mass/vol an 2016 ume] in UNCONFIRM Unspecifi ED ed result. specimen This result is for medicalpu rposes and/or treatment only. Phencycli <25 ng/mL No No Nov 18 dine informati informati 2017 [Mass/vol on in on in ume] in source source Unspecifi data data ed specimen 11-Hydr POSITIV <50 ng/mL Abnorma This is Nov 18 oxy E l an 2017 delta-9 UNCONFI RMED tetrahy result. [email or web address] This abinol result [Presen is for ce] in medical Unspeci purpose fied s specime and/or n treatme nt only.
--- OUTSIDE RECORDS SUMMARY | 2017-01-19 07:38 | External Medical Summary Rpt | CCD ---
Author Author , PORSCHE MORRELL Address Unknown Phone [email or web address] Immunization Name Date Rout CVX Reac Dose [...]
--- OUTSIDE RECORDS SUMMARY | 2017-01-19 07:38 | External Medical Summary Rpt | CCD ---
Demographics Preferred Language Icelandic Marital Status Unknown Sabianism Affiliation Unknown Race Unknown Ethnic Group Unknown Author Author PORSCHE Address Unknown Phone [email or web address] Purpose Continuity of Care Document - through 2016
--- OUTSIDE RECORDS SUMMARY | 2017-01-19 07:38 | External Medical Summary Rpt | CCD ---
Demographics Preferred Language Welsh Marital Status Unknown Hinduism Affiliation Unknown Race Unknown Ethnic Group Unknown Author Author PORSCHE Address Unknown Phone [email or web address] Purpose Continuity of Care Document - through 2016
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
--- NOTE | 2017-01-19 08:05 | Emergency Room Report ---
See Addendum History of Present Illness Time Seen by MD Ramirez Presenting Problem in Triage Pt arrived:Walked Presenting Problem:slammed hand in car door 3 days ago; progressively increasing on drainage and swelling ever since. pt states it has been having "little white heads pop up all over it, notable redness and also weeping Onset of symptoms date/time:01/16/1706/28/1499 or onset unknown for: Treatment Prior to Arrival: [employer]RU [employer] Provided by: Sepsis Risk Assessment: Temp: 99.6 B/P: 154/71 MAP: 98 Pulse: 111 Resp: 22 Recent fever? N Clinical Suspician of Infection? N Mental Status: 1 - Regular (Normal Baseline) Sepsis Risk:Possible Sepsis Risk Have you (or family members/close friends) recently traveled outside the [place]? N If Yes, where/when: Have you had exposure to infectious disease within the past month? TB? Other? Specify: Patient shut hand in truck door several days ago, having localized redness and pain. Previously had drainage. No fever; has nausea, not actively vomiting. ALLERGIES Coded Allergies: No Known Allergies (01/19/17) Home Medications Active Scripts IBUPROFEN (Motrin 600MG) 600 MG PO Q6HP PRN pain #40 TAB Prov: 11/18/16 SULFAMETHOXAZOLE W/TRIMETHOPRI (Bactrim Ds Tab) 1 TABLET PO BID #14 TAB Prov: 11/18/16 History Medical History General CAD? No Angina: No IN: No Hypertension? No Hyperlipidemia? No CHF? No DVT? No PE? No COPD? No Asthma? No Anemia? No GERD? No Gastric ulcers? No GI Bleed? No Hernia? No Thyroid Problems? No Hypothyroidism? No CVA? No Seizures? No Diabetes? No Insulin Dependent: No Insulin Pump: No Home FSBS? No Renal Insuffiency? No End Stage Renal Disease? No UTI? No Stones? No BPH? No GB Disease: No Nephritic Syndrome? No Asplenia? No Hepatitis? No Sickle Cell Disease? No Arthritis? No Migraines? No Cataracts? No Glaucoma? No MRSA? No HIV? No TB? No Anxiety? No Depression? No Cancer? No More? 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 [employer] Hx LMP N/A Social History Smoking Hx Smoker: Current Every Day Smoker Tobacco: Yes Type Cigarettes Packs/day < 1 Pack Alcohol Alcohol: Yes Review of Systems All Other Systems Reviewed and Negative Gastrointestinal see HPI, nausea Musculoskeletal see HPI Skin see HPI Physical Exam Vital Signs Vital Signs Date Time Temp Pulse Resp B/P Pulse O2 O2 Flow FiO2 Ox Delivery Rate 01/19 823 110 22 130/81 100 01/20 712 99.6 111 22 154/71 99 General Appearance normal appearance, WD/WN, no apparent distress Eye Exam - bilateral eye normal exam, bilateral eye PERRL, bilateral eye EOMI Neck normal inspection, non-tender, supple, full range of motion Respiratory Status Yes: trachea midline. No: respiratory distress. Cardiovascular normal peripheral pulses Peripheral Pulses Pulses normal Yes Extremities normal range of motion, n/ v intact; right hand pos STS, mild localized erythema, no streaks, no drainage, painful to palpation over right thumb without any active drainage or abscess; no abrasions. Limb including all digits is well perfused. Strength 5 Upper Ext (R) Neurologic alert, normal exam, no motor/sensory deficits, oriented x 3 Glascow Coma Scale Glascow Coma Scale Response Value EYE response: 4 Spontaneously 4 MOTOR response: 6 OBEYS 6 VERBAL response: 5 Oriented & Converses 5 Total 15 Skin intact (see above) Medical Decision Making LABS/Meds/Orders Pt receiving controlled substance in ED? No Results/Orders Laboratory Tests 01/19/17 0740: Lactic Acid 1.4 01/19/17 0740: Sodium 135 L, Potassium 3.2 L, Chloride 99, Carbon Dioxide 25, BUN 7, Creatinine 0.9, Estimated Creat Clear 86, Estimated GFR (MDRD) 76, Glucose 142 H, Calcium 9.4, Total Bilirubin 1.0, AST 34, ALT 118 H, Alkaline Phosphatase 89 , Total Protein 8.1, Albumin 3.8, Globulin 4.3 H, Albumin/Globulin Ratio 0.9 L , WBC 17.8 H, RBC 4.68, Hgb 14.4, Hct 43.3, MCV 92.6, RDW 14.2, Plt Count 239, MPV 9.2, Gran % 72.5, Gran # 12.9 H, Total Counted 100, Lymphocytes % 16.6, Monocytes % 10.3 H, Eosinophils % 0.1, Basophils % 0.4, Neutrophils 67, Band Neutrophils 21 H, Lymphocytes (Manual) 4 L, Lymphocytes # 3.0, Monocytes ( Manual) 5, Monocytes # 1.8 H, Eosinophils # 0.0, Basophils # 0.1, Atypical Lymphocytes 3, Platelet Estimate NORMAL, PUBS MCHC 33.2, MCH 30.7 Current Medication Orders Sig/Jyoti Start time Last Medication Dose Route Stop Time Status Admin Naproxen 500 MG ONCE ONE 01/19 900 AC 01/19 PO 01/19 Ondansetron HCl 4 MG ONCE ONE 01/19 900 AC 01/19 PO 01/19 Tetanus/Diphtheria 0.5 ML ONCE ONE 01/19 900 AC 01/19 Toxoids Adsorbed IM 01/19 Diphtheria/Pertussis/ 0 .STK-MED ONE 01/19 849 DC Tetanus Vacc IM Naproxen 0 .STK-MED ONE 01/19 849 DC PO Ondansetron HCl 0 .STK-MED ONE 01/19 849 DC .ROUTE Sodium Chloride 10 ML PRN PRN 01/19 730 AC IV 01/20 718 Orders Procedure Date/time Status DIFFERENTIAL-WBC 01/20 740 Complete IV SALINE LOCK 01/19 719 Active CULTURE, BLOOD 01/19 719 Active LACTIC ACID 01/19 719 Complete CBC WITH AUTO DIFF 01/19 719 Complete CHEM 12 PROFILE 01/19 719 Complete XRAY/CT/US XRAY/CT/US XR interpretation by reviewed by me (report reviewed) Xray Results normal/NAD, no fracture seen Progress ED Progress Notes Date 01/19/17 Time 0852 Comment patient preference to go home; does not have a PCP so given referral list and advised needs 24 hour recheck by MD of choice, return if any worsening sx. She agrees to fill and take antibiotics immediately. Departure Departure Time of Disposition 0853 Disposition DC Home or Self Care(routine) Clinical Impression Primary Impression: Cellulitis of right thumb Condition STABLE Referrals Timoteo Wilson MD: Tomorrow-Call Office Patient Instructions DI for Cellulitis -- Adult Additional Instructions Soak hand in Epsom salts and very warm water for ten to twenty minutes at a time every two hours while awake to help with swelling. Follow up with family doctor or orthopedic surgeon of choice in one to three days for recheck, sooner if not improving; if unable to keep down antibiotics, high spiking fever, worse redness or any concerns, go to closest ER for recheck. Rx Zofran, Naproxen, Keflex, Bactrim Discharge Counseling Counseled pt/family regarding diagnosis, test results, medications/RX, home care, follow up needs Prescriptions Current Visit Scripts NAPROXEN (NAPROXEN 500MG TAB) 500 MG PO BIDP PRN pain #20 TAB Ondansetron (Zofran 4MG Odt) 4 MG PO Q6HP PRN NAUSEA AND VOMITING #10 ODT CEPHALEXIN (Keflex 500MG Capsule) 500 MG PO QID #20 CAP SULFAMETHOXAZOLE W/TRIMETHOPRI (Bactrim Ds Tab) 1 TABLET PO BID #20 TAB ED Critical Care Critical Care No at 0858
[2017-01-19 08:12] LABS: HEMOGLOBIN 14.4 g/dL (12.2-16.2)
[2017-01-19 08:13] LABS: LYMPH % 16.6 % (10-50.0)
[2017-01-19 08:44] LABS: NEUTROPHILS 67 % (42-76)
[2017-01-19] MEDS ORDERED: NAPROXEN SODIU500 MG PO (08:57)
[2017-01-19] MEDS ORDERED: ZOFRAN ODT4 MG PO (08:57)
[2017-01-19] MEDS ORDERED: KEFLEX 500MG.500 MG PO (08:57)
[2017-01-19] MEDS ORDERED: BACTRIM DS 8001 TA1 PO (08:57)
[2017-01-19 09:46] VITALS: BP 130/81
[2017-01-22] MEDS ORDERED: BACTRIM DS 8001 TA1 PO (07:22)
== END 2017-01-19 09:46 | disposition home or self-care (01) ==
LOC: ER 07:08
PROVIDERS: Emergency Medicine
DX: L03.011 Cellulitis of right finger (principal); F17.210 Nicotine dependence, cigarettes, uncomplicated; Z23 Encounter for immunization

== ENCOUNTER 2017-01-24 15:20 | Outpatient (CLI) | payer MEDICAID | END 2017-01-24 15:45 | disposition home or self-care (01) | LOC: COP 15:20 | DX: L02.512 Cutaneous abscess of left hand (principal) | CPT/HCPCS: G0463 ==

== ENCOUNTER 2017-01-26 15:18 | Outpatient (CLI) | payer MEDICAID | END 2017-01-26 15:40 | disposition home or self-care (01) | LOC: COP 15:18 | DX: L02.512 Cutaneous abscess of left hand (principal); Z48.00 Encounter for change or removal of nonsurgical wound dressing | CPT/HCPCS: G0463 ==